=== PATIENT | female | born 1985 | race Caucasian/White ===

== ENCOUNTER 2018-03-18 07:20 | Emergency (ER) | payer SELFPAY ==
[~2018-03-18] VITALS: Ht 167.6 cm; Wt 78.5 kg
[2018-03-18 07:24] VITALS: BP 118/77; Ht 167.6 cm; Wt 78.5 kg
== END 2018-03-18 08:05 | disposition home or self-care (01) ==
LOC: ED 07:20
DX: K04.7 Periapical abscess without sinus (principal)
CPT/HCPCS: J0690